=== PATIENT | female | born 1985 | race Two or more races ===

== ENCOUNTER 2024-12-12 09:04 | Outpatient (RCR) | payer MEDICAID, SELFPAY | END 2024-12-22 23:59 | disposition home or self-care (01) | LOC: SCTC 09:04 | PROVIDERS: PCP Family Medicine; Referring Provider Family Medicine; Visit Provider Nurse Practitioner Family | DX: Z09 Encounter for follow-up examination after completed treatment for conditions other than malignant neoplasm (principal); Z86.2 Personal history of diseases of the blood and blood-forming organs and certain disorders involving the immune mechanism; Z87.19 Personal history of other diseases of the digestive system | CPT/HCPCS: 99212; G0463 ==

== ENCOUNTER 2025-04-10 08:28 | Outpatient (RCR) | payer MEDICAID, SELFPAY | END 2025-04-21 23:59 | disposition home or self-care (01) | LOC: SCTC 08:28 | PROVIDERS: PCP Family Medicine; Referring Provider Family Medicine; Visit Provider Nurse Practitioner Family | DX: Z09 Encounter for follow-up examination after completed treatment for conditions other than malignant neoplasm (principal); Z86.2 Personal history of diseases of the blood and blood-forming organs and certain disorders involving the immune mechanism; Z87.19 Personal history of other diseases of the digestive system | CPT/HCPCS: 99212; G0463 ==

== ENCOUNTER 2025-10-11 08:58 | Outpatient (RCR) | payer MEDICAID, SELFPAY | END 2025-10-21 23:59 | disposition home or self-care (01) | LOC: SCTC 08:58 | PROVIDERS: PCP Family Medicine; Referring Provider Family Medicine; Visit Provider Nurse Practitioner Family | DX: Z09 Encounter for follow-up examination after completed treatment for conditions other than malignant neoplasm (principal); Z86.2 Personal history of diseases of the blood and blood-forming organs and certain disorders involving the immune mechanism; Z87.19 Personal history of other diseases of the digestive system | CPT/HCPCS: 99212; G0463 ==

== ENCOUNTER 2025-10-18 16:47 | Emergency (ER) | payer MEDICAID, SELFPAY ==
[2025-10-18 16:59] VITALS: BP 131/81; PULSE 92; RESP 20; TEMP 36.9; O2SAT 99
--- NOTE | 2025-10-18 17:14 | PD.EDWOUND ---
ED Wound/Laceration-RME/HPI General Chief Complaint: Wound/Laceration Stated Complaint: LAC L) THUMB Time Seen by Provider: 10/18/25 16:50 Arrival date/time: 10/18/25 16:47 39-year-old female presents to the Emergency Department today for complaint of laceration to the left thumb patient was washing a knife and cut her finger Limitations: no limitations Related Data Home Medications ?Medication ?Instructions ?Recorded ?Confirmed ferrous sulfate 325 mg (65 mg 1 mg PO QDAY 04/30/24 04/30/24 iron) tablet (FeroSul) mesalamine 1.2 gram tablet,delayed 2.4 g PO BID 04/30/24 04/30/24 release Previous Rx's ?Medication ?Instructions ?Recorded prednisone 5 mg tablet 5 mg PO QDAY #68 tabs 05/04/24 Allergies Allergy/AdvReac Type Severity Reaction Status Date / Time No Known Allergies Allergy Verified 10/18/25 16:50 Review of Systems Review of Systems Systems Reviewed: All systems reviewed, normal except as documented Constitutional Constitutional: Reports system reviewed and no additional complaints, except as documented, Denies fever(s) and Denies headache(s) Eyes Eyes: Reports system reviewed and no additional complaints, except as documented and Denies blurry vision ENT Ears, Nose, Mouth, and Throat: Reports system reviewed and no additional complaints, except as documented, Denies headache(s), Denies nasal congestion and Denies nasal discharge Cardiovascular Cardiovascular: Reports system reviewed and no additional complaints, except as documented, Denies chest pain and Denies dyspnea Respiratory Respiratory: Reports system reviewed and no additional complaints, except as documented, Denies chest congestion, Denies cough and Denies dyspnea Gastrointestinal Gastrointestinal: Reports system reviewed and no additional complaints, except as documented and Denies abdominal pain Integumentary/Breasts Skin/Breast: Reports system reviewed and no additional complaints, except as documented, Denies rash and Reports wounds (Laceration her left thumb) Neurologic Neurologic: Reports system reviewed and no additional complaints, except as documented, Reports as per HPI and Denies headache(s) Past Medical History Past Medical History NEUROLOGIC: Negative Seizures CARDIAC: Negative Congestive Heart Failure RESPIRATORY: Negative Chronic Obstructive Pulmonary Disease (COPD) GASTROINTESTINAL: Positive Colitis and Hemorrhoids GENITOURINARY: Negative Renal Disease ENDOCRINE: Negative Diabetes Mellitus Type 1 or Diabetes Mellitus Type 2 HEMATOLOGIC: Positive Anemia OTHER HISTORY: Negative Blood Transfusions or Anesthesia Reactions Social History SMOKING STATUS: Never smoker ED Exam General Limitations: Present no limitations General appearance: Present alert and in no apparent distress Head Head exam: Present atraumatic Eye Eye exam: Present normal appearance, PERRL and EOMI ENT ENT exam: Present normal exam, normal oropharynx and mucous membranes moist Neck Neck exam: Present normal inspection, full ROM and trachea midline Chest Chest inspection: Present normal inspection and symmetric chest wall rise Respiratory Respiratory exam: Present normal lung sounds bilaterally Cardiovascular Cardiovascular exam: Present regular rate, normal rhythm and normal heart sounds Abdominal Exam Abdominal exam: Present soft and normal bowel sounds Extremities Exam Extremities exam: Present normal inspection and full ROM Back Exam Back exam: Present normal inspection and full ROM Neurological Exam Neurological exam: Present alert, oriented X3, CN II-XII intact, normal gait and reflexes normal; Absent motor sensory deficit Psychiatric Psychiatric exam: Present normal affect and normal mood Skin Skin exam: Present warm, dry and other (Laceration left thumb) Course Quality Measures none Orders Category Date Time Status Set Up Suture Tray STAT Care 10/18/25 17:14 Completed Wound Care NOW Care 10/18/25 17:14 Completed Lidocaine 1% Vial 20 ml [Xylocaine 1% 20 ML] Med 10/18/25 17:14 Discontinued 20 ml INFL X1 ONE TET,DIP/PERT AC (Adult)-Tdap [Boostrix Adult (Tdap) Med 10/18/25 17:14 Discontinued Vacc] 0.5 ml IMI .ONCE ONE Vital Signs Vital signs: Vital Signs Temperature 98.4 F 10/18/25 16:59 Pulse Rate 92 10/18/25 16:59 Respiratory Rate 20 10/18/25 16:59 Blood Pressure 131/81 H 10/18/25 16:59 Pulse Oximetry (%) 99 10/18/25 16:59 Oxygen Delivery Method Room Air 10/18/25 16:59 O2 saturation 99% room air within normal limits PROCEDURES: Laceration Laceration 1: Side (If applicable): left Size (cm): 3 Description: linear Depth: simple, single layer Local Anesthetic: lidocaine 1% Amount of anesthesia used (mL): 8 Pre-repair: wound explored Skin layer closed with: nylon Suture size (cm): 4-0 Number of sutures: 6 Technique: simple, interrupted Wound / Laceration MDM Narrative MDM Narrative:: 39-year-old female presents to the Emergency Department today for complaint of laceration to the left thumb patient was washing a knife and cut her finger On exam patient well-appearing does not appear ill or toxic no acute distress Wound irrigated copiously laceration repaired wound is well-approximated with no active bleeding at time of discharge patient has no evidence of tendon or ligamentous injury full range of motion Patient discharged home in no distress to follow-up with primary care doctor in the next 24 to 48 hours and for any worsening symptoms to return to the ER immediately Patient data External records reviewed:: [facility] previous records Clinical information provided by:: patient Social determinants that could affect healthcare access:: none Patient has the following chronic illnesses:: None How is presenting disease/condition affected by chronic disease/condition?: no chronic disease Evaluation data The following diagnostics were reviewed and interpreted by me:: other (specify) Lab and/or radiology exams considered but not ordered:: Considered not ordered Interpretation Summary: N/A Medications / Prescriptions Medications or Prescriptions considered but not ordered:: Given Medication administrations:: Medication Administration History Discontinued Medications Diphtheria/Tetanus/Acell Pertussis (Diphth,Pertuss(Acell),Tet Vac 0.5 Ml Syr- Adult) 0.5 ml IMi .ONCE ONE Stop: 10/18/25 17:15 Last Admin: 10/18/25 17:26 Dose: 0.5 ml Documented By: JOJO Lidocaine HCl (Lidocaine Hcl 1% 20 Ml Vial) 20 ml INFL X1 ONE Stop: 10/18/25 17:15 Last Admin: 10/18/25 17:23 Dose: 20 ml Documented By: JOJO Comments: 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 Given Consultations Consultation(s) initiated? (list below): No Diagnosis Wound Differential Diagnosis: laceration, abrasion and avulsion of skin Most likely diagnosis given after review of the tests above:: Laceration finger Admission Indicated Admission indicated?: not indicated Admission Request Was there a request for admission?: No Disposition Plan Disposition Plan: Discharge Discharge Attestation Discharge Attestation: The patient and all family members were given an opportunity to ask questions and understood the discharge instructions. Discharge instructions specifically effects, indications for sooner follow up or return to the emergency department, and the expected course of current diagnosis. Patient condition: Stable Discharge Plan Plan Patient Disposition: HOME (Self Care) Discharge Disposition comment: Stable Prescriptions/Referrals Prescriptions/Med Rec: No Action ferrous sulfate [FeroSul] 325 mg (65 mg iron) tablet 1 mg PO QDAY mesalamine 1.2 gram tablet,delayed release (DR/EC) 2.4 g PO BID Patient Comments: TAKE 1 TABLET BY MOUTH TWICE DAILY prednisone 5 mg tablet 5 mg PO QDAY Qty: 68 0RF Taper: Prednisone Taper 10 mg TWICE A DAY for 7 Days and 0 Hour 7.5 mg TWICE A DAY for 7 Days and 0 Hour 5 mg TWICE A DAY for 7 Days and 0 Hour 5 mg DAILY for 7 Days Problem List Clinical Impression: Laceration of left thumb Patient/Caregiver Discharge Instructions Education Materials: ED Laceration: All Closures Additional Instructions: Please follow up with your primary care doctor in the next 24-48hrs for any worsening symptoms return here immediately Please have sutures removed in 10 days Print Language: Yakut Stand Alone Forms: [employer] Award Info., Patient Portal Info Letter Vaccines Vaccines Given During Stay: Radha PA/AN[employer]OID [employer]OS DEVELOPER Supervising Physician PA/[employer] DEVELOPER Supervising Physician: Dr. tucker
[2025-10-18] MEDS: LIDOCAINE HCL 1% 20 ML VIAL INFL (17:23)
[2025-10-18] MEDS: DIPHTH,PERTUSS(ACELL),TET VAC 0.5 ML SYR- ADULT IMi (17:26)
== END 2025-10-18 17:34 | disposition home or self-care (01) ==
LOC: SERX 17:39
PROVIDERS: Emergency Provider Nurse Practitioner Primary Care
DX: S61.012A Laceration without foreign body of left thumb without damage to nail, initial encounter (principal); W26.0XXA Contact with knife, initial encounter; Y93.G1 Activity, food preparation and clean up; Z23 Encounter for immunization
CPT/HCPCS: 12002; 90471; 90715; 99282; J3490

== ENCOUNTER 2025-10-31 10:07 | Emergency (ER) | payer MEDICAID, SELFPAY ==
[2025-10-31 10:49] VITALS: BP 113/69; PULSE 73; RESP 16; TEMP 36.8; O2SAT 99; BMI 21.4
--- NOTE | 2025-10-31 11:09 | PD.EDWOUND ---
ED Wound/Laceration-RME/HPI General Chief Complaint: Wound Recheck / Suture Removal Stated Complaint: Suture removal left thumb Time Seen by Provider: 10/31/25 10:54 Arrival date/time: 10/31/25 10:07 RME / HPI RME / HPI narrative: 39-year-old female who had sutures placed about 2 weeks ago for left thumb presents to the ER requesting removal of sutures. Denies any fever, discharge, increased pain, increased redness. Related Data Home Medications ?Medication ?Instructions ?Recorded ?Confirmed ferrous sulfate 325 mg (65 mg 1 mg PO QDAY 04/30/24 04/30/24 iron) tablet (FeroSul) mesalamine 1.2 gram tablet,delayed 2.4 g PO BID 04/30/24 04/30/24 release Previous Rx's ?Medication ?Instructions ?Recorded prednisone 5 mg tablet 5 mg PO QDAY #68 tabs 05/04/24 mupirocin calcium 2 % topical cream 1 applic topical TID #15 grams 10/31/25 Allergies Allergy/AdvReac Type Severity Reaction Status Date / Time No Known Allergies Allergy Verified 10/31/25 10:10 ED Exam Narrative Physical exam: Constitutional: Vital Signs Reviewed. Well appearing. No acute distress. Not toxic appearing. Head: Normocephalic, atraumatic. Eyes: Conjunctiva clear. ENT: Mucous membranes moist. Neck: Trachea midline. Normal range of motion. No nuchal rigidity. Respiratory: Normal effort. No respiratory distress or accessory muscle use. Neuro: Alert and oriented. Speech normal. No focal gross motor or sensory deficits observed. Skin: Warm, dry, normal color. Left upper extremity: First digit with sutures in place and wound intact with mild erythema however it is non tender. No induration, fluctuance, discharge. MTP and IP joint with full flexion and extension of left first digit and cap refill less than 2 seconds. Psych: Pleasant. Normal affect. Cooperative. Course Quality Measures none Orders Category Date Time Status Wound Care NOW Care 10/31/25 11:14 Active Vital Signs Vital signs: Vital Signs Temperature 98.2 F 10/31/25 10:49 Pulse Rate 73 10/31/25 10:49 Respiratory Rate 16 10/31/25 10:49 Blood Pressure 113/69 10/31/25 10:49 Pulse Oximetry (%) 99 10/31/25 10:49 Oxygen Delivery Method Room Air 10/31/25 10:49 Wound / Laceration MDM Narrative MDM Narrative:: Suspect typical post traumatic inflammatory minimal inflammation versus mild wound infection Sutures removed without difficulty and patient tolerated procedure well and wound remains intact without dehiscence Digit remains distally neurovasc intact with soft compartments Plan for topical antibiotics, wound care, follow-up with PMD in 1 to 2 days, strict ER return precautions advised At the time of reassessment prior to discharge, the patient remains alert and oriented ?3 with GCS 15. Vitals are normal, pain is controlled, and the patient is tolerating oral intake without nausea or vomiting. The patient is agreeable to discharge and verbalizes understanding of the diagnosis, studies, treatment plan, medications (including side effects/precautions), and strict ER return precautions as discussed in the ED. All concerns were addressed, and the patient is comfortable with the plan. Patient data External records reviewed:: [facility] previous records Clinical information provided by:: patient Social determinants that could affect healthcare access:: none Patient has the following chronic illnesses:: None How is presenting disease/condition affected by chronic disease/condition?: no chronic disease Evaluation data The following diagnostics were reviewed and interpreted by me:: other (specify) Lab and/or radiology exams considered but not ordered:: Additional Labs and radiology considered, but not ordered as they were not clinically indicated at this time. Interpretation Summary: As noted Medications / Prescriptions Medications or Prescriptions considered but not ordered:: I ordered medications based on the patient?s clinical needs and assessment, as documented in the chart. For medications not prescribed, they were not indicated for the patient's current condition, and I determined they were unnecessary at this time to avoid potential risks or complications. Medication administrations:: As noted Consultations Consultation(s) initiated? (list below): No Diagnosis Wound Differential Diagnosis: abrasion and other Most likely diagnosis given after review of the tests above:: Well-healing wound Admission Indicated Admission indicated?: not indicated Admission Request Was there a request for admission?: No Disposition Plan Disposition Plan: Discharge Discharge Attestation Discharge Attestation: The patient and all family members were given an opportunity to ask questions and understood the discharge instructions. Discharge instructions specifically effects, indications for sooner follow up or return to the emergency department, and the expected course of current diagnosis. Patient condition: Stable Discharge Plan Plan Patient Disposition: HOME (Self Care) Patient condition on transfer: Stable Prescriptions/Referrals Prescriptions/Med Rec: New mupirocin calcium 2 % cream 1 applic topical TID Qty: 15 0RF No Action ferrous sulfate [FeroSul] 325 mg (65 mg iron) tablet 1 mg PO QDAY mesalamine 1.2 gram tablet,delayed release (DR/EC) 2.4 g PO BID Patient Comments: TAKE 1 TABLET BY MOUTH TWICE DAILY prednisone 5 mg tablet 5 mg PO QDAY Qty: 68 0RF Taper: Prednisone Taper 10 mg TWICE A DAY for 7 Days and 0 Hour 7.5 mg TWICE A DAY for 7 Days and 0 Hour 5 mg TWICE A DAY for 7 Days and 0 Hour 5 mg DAILY for 7 Days Problem List Clinical Impression: Encounter for removal of sutures Patient/Caregiver Discharge Instructions Education Materials: ED Stitches/Staple Removal No ... Additional Instructions: Follow up with your primary medical doctor within 48 hours. Return to the Emergency Room immediately for any new, worsening, continuing symptoms or any concerns at all. Return to the Emergency Room within 48 hours if you are unable to follow up with your primary medical doctor within 48 hours. Print Language: Persian Stand Alone Forms: [employer] Award Info., Patient Portal Info Letter PA/CELLAR PUMPER Supervising Physician PA/CELLAR PUMPER Supervising Physician: Dr. Alex
--- NOTE | 2025-10-31 11:34 | PC.NURSE ---
wound cleaned with NS, dry, triple antibiotic applied and wrapped with small bandage. pt tolerated well.
== END 2025-10-31 11:36 | disposition home or self-care (01) ==
LOC: SERX 11:25
PROVIDERS: Emergency Provider Physician Assistant; PCP Family Medicine
DX: S61.012D Laceration without foreign body of left thumb without damage to nail, subsequent encounter (principal); X58.XXXD Exposure to other specified factors, subsequent encounter
CPT/HCPCS: 99281